=== PATIENT | male | born 2000 | race African-American/Black ===

== ENCOUNTER 2024-04-23 08:28 | Emergency (ER) | payer MEDICAID ==
[~2024-04-23] VITALS: Ht 175.3 cm; Wt 86.0 kg
[2024-04-23 08:37] VITALS: BP 129/67; PULSE 76; RESP 16; TEMP 98.3; O2SAT 98
== END 2024-04-23 09:00 | disposition home or self-care (01) ==
LOC: ER 08:28
DX: R68.89 Other general symptoms and signs (principal); J45.909 Unspecified asthma, uncomplicated; Z90.49 Acquired absence of other specified parts of digestive tract
CPT/HCPCS: 99281